=== PATIENT | female | born 1955 | race Caucasian/White ===

== ENCOUNTER → 2020-05-10 | Outpatient (CLI) | payer OTHER ==
[~2020-05-10] MED LIST: PROZAC20 MG PO; SYNTHROID0.125 MG PO; TENORMIN100 MG PO
== END | disposition home or self-care (01) ==
LOC: COVID19 10:14
PROVIDERS: ATTEND Family Medicine
DX: U07.1 COVID-19 (principal)

== ENCOUNTER 2025-04-09 10:50 | Inpatient (IN) | payer OTHER ==
[~2025-04-09] VITALS: Ht 165.1 cm; Wt 87.1 kg
[2025-04-09 10:57] VITALS: BP 150/80
[2025-04-09] MEDS ORDERED: SYNTHROID,LEV175 MCG PO (11:03)
[2025-04-09] MEDS ORDERED: ASPIRIN81 M1 PO (11:03)
[2025-04-09] MEDS ORDERED: NORVASC2.5 MG PO (11:03)
[2025-04-09 11:30] LABS: BASO # 0.0 10*3/uL (0.0-0.1); BASO % 0.4 % (0.0-1.0); EOS # 0.1 10*3/uL (0.0-0.4); EOS % 0.5 % (1.0-4.0); MEAN CELL VOLUME 96.8 fl (81.0-99.0); MEAN CORPUSCULAR HGB 31.3 pg (27.0-31.0); MEAN PLATELET VOLUME 9.5 fl (9.6-12.3); MONO # 0.5 10*3/uL (0.1-1.0); MONO % 5.4 % (3.0-9.0); NEUT # 7.7 10*3/uL (2.3-7.9); NEUT % 83.6 % (47.0-73.0); NUCLEATED RED BLOOD CELL 0.0 % (0.0-0.0); NUCLEATED RED BLOOD CELL 0.0 10*3/uL (0.0-0.0); PLATELET COUNT AUTOMATED 233 10*3/uL (130-400); RED CELL DISTRI WIDTH 12.1 % (0-14.5)
[2025-04-09] MEDS ORDERED: Albuterol Sulf/Ipratropium 3 ML VIAL NEB ONE (11:30)
[2025-04-09] MEDS ORDERED: SODIUM CHLORIDE 0.9% 1,000 ML IV SCH (11:30)
[2025-04-09] MEDS ORDERED: AZITHROMYCIN 250 ML IV ONE (11:30)
[2025-04-09 11:41] LABS: ACT PARTIAL THROMBO TIME 25.6 SECONDS (20.0-32.1)
[2025-04-09 11:54] LABS: BUN 6 mg/dl (9-23)
[2025-04-09] MEDS ORDERED: CEFEPIME HCL IN DEXTROSE 5 % 50 ML IV ONE (12:00)
[2025-04-09] MEDS ORDERED: BISACODYL 5 MG TAB PO PRN (13:35)
[2025-04-09] MEDS ORDERED: ACETAMINOPHEN 325 MG TAB PO PRN (13:35)
[2025-04-09] MEDS ORDERED: Ondansetron Hydrochloride 4 MG/2 ML VIAL IV PRN (13:35)
[2025-04-09] MEDS ORDERED: BISACODYL 10 MG SUPP R PRN (13:35)
[2025-04-09] MEDS ORDERED: Acetaminophen/Hydrocodone 5 MG/325 MG TABLET PO PRN (13:35)
[2025-04-09] MEDS ORDERED: Albuterol Sulf/Ipratropium 3 ML VIAL NEB PRN (13:45)
[2025-04-09 17:35] VITALS: BP 148/80
[2025-04-09 18:00] VITALS: BP 189/90
[2025-04-09] MEDS ORDERED: SODIUM CHLORIDE 0.9% 1,000 ML IV ONE (18:40)
[2025-04-09] MEDS ORDERED: CLONAZEPAM1 MG PO (19:03)
[2025-04-09 20:00] VITALS: BP 152/63
[2025-04-10] VITALS: BP 143/70
[2025-04-10 05:59] LABS: BUN 8 mg/dl (9-23); LDL CHOLESTEROL 108 mg/dL (9-159)
[2025-04-10 06:40] LABS: MEAN CELL VOLUME 98.4 fl (81.0-99.0); MEAN CORPUSCULAR HGB 31.0 pg (27.0-31.0); MEAN PLATELET VOLUME 9.8 fl (9.6-12.3); NUCLEATED RED BLOOD CELL 0.0 % (0.0-0.0); NUCLEATED RED BLOOD CELL 0.0 10*3/uL (0.0-0.0); PLATELET COUNT AUTOMATED 249 10*3/uL (130-400); RED CELL DISTRI WIDTH 12.0 % (0-14.5)
[2025-04-10 06:42] LABS: VITAMIN D, 25-HYDROXY 24.5 ng/mL (30-100)
[2025-04-10 06:55] LABS: MANUAL DIFF REFLEX YES
[2025-04-10 07:19] LABS: PLATELET SUFFICIENCY NORMAL (NORMAL)
[2025-04-10 08:00] VITALS: BP 146/63
[2025-04-10] MEDS ORDERED: REMDESIVIR 200 MG in SODIUM CHLORIDE 0.9% 210 ML IV ONE (08:00)
[2025-04-10] MEDS ORDERED: ASPIRIN ENTERIC COATED 81 MG TAB PO SCH (10:00)
[2025-04-10] MEDS ORDERED: Dexamethasone Sodium Phospha 4 MG/ML VIAL IV SCH (10:00)
[2025-04-10] MEDS ORDERED: VENT7GM INH (11:04)
[2025-04-10] MEDS ORDERED: PREDNISONE50 MG PO (11:04)
[2025-04-10] MEDS ORDERED: MUCINEX1200 M1 PO (11:05)
[2025-04-11] MEDS ORDERED: REMDESIVIR 100 MG in SODIUM CHLORIDE 0.9% 230 ML IV SCH (08:00)
== END 2025-04-10 11:57 | disposition home or self-care (01) | DRG 178 ==
LOC: ED 10:50 → 4E 12:47 → EDHOLD 12:47 → ICCU 14:51 → 4E 16:01
PROVIDERS: Emergency Medicine; Student in an Organized Health Care Education/Training Program; ADMIT Internal Medicine; ATTEND Internal Medicine
PROC: XW033E5 Introduction of Remdesivir Anti-infective into Peripheral Vein, Percutaneous Approach, New Technology Group 5 (ICD-10-PCS; principal; 2025-04-10)
DX: U07.1 COVID-19 (principal); E87.20 Acidosis, unspecified; J44.1 Chronic obstructive pulmonary disease with (acute) exacerbation; K50.90 Crohn's disease, unspecified, without complications; F41.9 Anxiety disorder, unspecified; I10 Essential (primary) hypertension; G44.89 Other headache syndrome; E03.9 Hypothyroidism, unspecified; J98.4 Other disorders of lung; Z88.2 Allergy status to sulfonamides; Z79.899 Other long term (current) drug therapy; Z79.01 Long term (current) use of anticoagulants; Z79.2 Long term (current) use of antibiotics; Z79.82 Long term (current) use of aspirin; Z82.49 Family history of ischemic heart disease and other diseases of the circulatory system; Z87.891 Personal history of nicotine dependence; Z80.0 Family history of malignant neoplasm of digestive organs; Z80.8 Family history of malignant neoplasm of other organs or systems